=== PATIENT | male | born 1975 | race Caucasian/White ===

== ENCOUNTER 2018-06-09 10:45 | Inpatient (IN) | payer OTHER ==
[2018-06-09] MEDS ORDERED: THROMBIN 5000 UNIT VIAL (12:38)
[2018-06-09] MEDS ORDERED: GELATIN SIZE 100 SPONGE (12:38)
[2018-06-09] MEDS ORDERED: MIDAZOLAM 1 MG/ML 2 ML INJ ×2 (13:09→14:03)
[2018-06-09] MEDS ORDERED: PHENYLephrine (100 MCG/ML) 10ML SYG (13:24)
[2018-06-09] MEDS ORDERED: VANCOMYCIN 1 GM INJ (13:43)
[2018-06-09] MEDS ORDERED: LIDOCAINE 2% (SDV) 5 ML INJ (14:23)
[2018-06-09] MEDS ORDERED: SUCCINYLCHOLINE CHLORIDE 100 MG/5 ML SYG IV (14:23)
[2018-06-09] MEDS ORDERED: ROCURONIUM 50 MG INJ ×2 (14:23→18:21)
[2018-06-09] MEDS ORDERED: PROPOFOL 40 ML (14:23)
[2018-06-09] MEDS: POLYMYXIN/BACITRACIN 1L IRRIG (14:29)
[2018-06-09] MEDS: LIDOCAINE 1%/EPI (1:100,000) (MDV) 20 ML (14:29)
[2018-06-09] MEDS ORDERED: EPHEDrine 25 MG/5 ML SYG ×2 (14:34→19:52)
[2018-06-09] MEDS ORDERED: DEXAMETHASONE 4 MG/ML 5 ML INJ (14:40)
[2018-06-09] MEDS ORDERED: FAMOTIDINE 20 MG INJ (14:40)
[2018-06-09] MEDS ORDERED: ONDANSETRON 4 MG INJ (14:40)
[2018-06-09] MEDS ORDERED: HYDROmorphONE 2 MG/ML SYG (18:22)
[2018-06-09] MEDS ORDERED: FENTAnyl 50 MCG/ML VIAL IV ×3 (19:30)
[2018-06-09] MEDS ORDERED: MEPERIDINE 25 MG INJ IV (19:30)
[2018-06-09] MEDS ORDERED: ONDANSETRON 4 MG INJ IV (19:30)
[2018-06-09] MEDS ORDERED: DIPHENHYDRAMINE 50 MG INJ IV (19:30)
[2018-06-09] MEDS ORDERED: PROCHLORPERAZINE 10 MG INJ IV (19:30)
[2018-06-09] MEDS ORDERED: HYDROmorphONE 1 MG/5 ML IV SYRINGE IV ×3 (19:30)
[2018-06-09] MEDS ORDERED: DIPHENHYDRAMINE 50 MG CAP PO (20:00)
[2018-06-09] MEDS ORDERED: HYDROCODONE/APAP (5/325) TAB PO (20:00)
[2018-06-09] MEDS ORDERED: NACL 0.9% 3 ML SYG IV (20:00)
[2018-06-09] MEDS ORDERED: morphine 1 MG/ML 30 ML (PCA) IV (20:00)
[2018-06-09] MEDS ORDERED: CEPASTAT LOZENGE MT (20:00)
[2018-06-09] MEDS ORDERED: NALOXONE (0.4 MG/ML) INJ IV (20:00)
[2018-06-09] MEDS: morphine 1 MG/ML 30 ML (PCA) IV (21:18)
[2018-06-09] MEDS: ONDANSETRON 4 MG INJ IV (22:26)
[2018-06-09] MEDS: VANCOMYCIN 1 GM (PMX) 250 ML IVPB (22:26)
[2018-06-09] MEDS: SOD CHLORIDE 0.9% 1,000 ML IV (22:51)
[2018-06-09] MEDS: LACTATED RINGER'S 1,000 ML IV (22:51)
[2018-06-10 05:53] LABS: ADD MAN DIFF? NO
[2018-06-10 06:01] LABS: BASOPHILS % 0.2 % (0.0-2.0); HEMATOCRIT 36.9 % (42.0-52.0); HEMOGLOBIN 12.2 g/dl (14.0-18.0); LYMPHOCYTES # 0.9 10^3/ul (0.8-2.9); LYMPHOCYTES % 5.1 % (15.0-51.0); MEAN CORPUSCULAR HEMOGLOBIN 29.8 pg (29.0-33.0); MEAN CORPUSCULAR HGB CONC 33.1 g/dl (32.0-37.0); MEAN CORPUSCULAR VOLUME 90.2 fl (82.0-101.0); MEAN PLATELET VOLUME 10.2 fl (7.4-10.4); MONOCYTES % 6.2 % (0.0-11.0); NEUTROPHIL # 14.8 10^3/ul (1.6-7.5); NEUTROPHILS % 88.1 % (39.0-77.0); PLATELET COUNT 256 10^3/UL (140-415); RED BLOOD COUNT 4.09 10^6/ul (4.70-6.10); RED CELL DISTRIBUTION WIDTH 12.6 % (11.5-14.5)
[2018-06-10 06:01] LABS: WHITE BLOOD COUNT 16.7 10^3/ul (4.8-10.8)
[2018-06-10 06:06] LABS: ANION GAP 8 (5-13); BLOOD UREA NITROGEN 15 mg/dl (7-20); CALCIUM 9.3 mg/dl (8.4-10.2); CARBON DIOXIDE 25 mmol/L (21-31); CHLORIDE 108 mmol/L (97-110); CREATININE 1.12 mg/dl (0.61-1.24); Estimated GFR > 60 mL/min (>60); GLUCOSE 178 mg/dl (70-220); POTASSIUM 4.7 mmol/L (3.5-5.1); SODIUM 141 mmol/L (135-144)
[2018-06-10] MEDS: LACTATED RINGER'S 1,000 ML IV (06:19)
[2018-06-10] MEDS: SOD CHLORIDE 0.9% 1,000 ML IV (06:22)
[2018-06-10] MEDS: ONDANSETRON 4 MG INJ IV ×2 (06:58→16:10)
[2018-06-10] MEDS ORDERED: EPHEDrine 25 MG/5 ML SYG (07:00)
[2018-06-10] MEDS: ACETAMINOPHEN 1000MG/100ML IV 100 ML IVPB ×3 (08:49→21:45)
[2018-06-10] MEDS: DEXTROSE 5%-0.45% NACL 1,000 ML IV ×2 (08:49→22:46)
[2018-06-10] MEDS: ATENOLOL 25 MG TAB PO (09:00)
[2018-06-10] MEDS: GEMFIBROZIL 600 MG TAB PO (09:00)
[2018-06-10] MEDS: DOCUSATE SODIUM 100 MG CAP PO ×2 (09:00→21:45)
[2018-06-10] MEDS: FLUTICASONE 0.05% 16 GM NAS SPRAY NASAL (09:00)
[2018-06-10] MEDS: AMLODIPINE 5 MG TAB PO (09:00)
[2018-06-10] MEDS: BUPROPION (XL) 150 MG TAB PO (09:00)
[2018-06-10] MEDS: VENLAFAXINE 75 MG TABLET PO ×2 (09:00→21:45)
[2018-06-10] MEDS: DEXAMETHASONE 4 MG/ML 1 ML INJ IV ×3 (09:03→22:45)
[2018-06-10] MEDS: METOCLOPRAMIDE 10 MG INJ IV (09:43)
[2018-06-10] MEDS: VANCOMYCIN 1 GM (PMX) 250 ML IVPB (11:01)
[2018-06-10] MEDS ORDERED: METOCLOPRAMIDE 10 MG INJ IV ×2 (12:00→18:00)
[2018-06-10] MEDS ORDERED: SUCCINYLCHOLINE CHLORIDE 100 MG/5 ML SYG IV (17:52)
[2018-06-10] MEDS ORDERED: PROPOFOL 20 ML (17:52)
[2018-06-10] MEDS ORDERED: ROCURONIUM 50 MG INJ ×2 (17:52→17:53)
[2018-06-10] MEDS ORDERED: MIDAZOLAM 1 MG/ML 2 ML INJ (17:53)
[2018-06-10] MEDS ORDERED: FENTAnyl 50 MCG/ML VIAL (17:53)
[2018-06-10] MEDS ORDERED: ONDANSETRON 4 MG INJ (17:54)
[2018-06-10] MEDS ORDERED: METOCLOPRAMIDE 10 MG INJ (17:54)
[2018-06-10] MEDS ORDERED: DEXAMETHASONE 4 MG/ML 5 ML INJ (17:55)
[2018-06-10] MEDS ORDERED: hydrALAzine 20 MG INJ IV (18:00)
[2018-06-10] MEDS ORDERED: DIPHENHYDRAMINE 50 MG INJ IV (18:00)
[2018-06-10] MEDS ORDERED: HYDROmorphONE 1 MG/5 ML IV SYRINGE IV ×2 (18:00)
[2018-06-10] MEDS ORDERED: FENTAnyl 50 MCG/ML VIAL IV ×4 (18:00→20:30)
[2018-06-10] MEDS ORDERED: ONDANSETRON 4 MG INJ IV (18:00)
[2018-06-10] MEDS ORDERED: EPHEDrine SULFATE 50 MG/5 ML SYG IV (18:00)
[2018-06-10] MEDS ORDERED: MEPERIDINE 25 MG INJ IV (18:00)
[2018-06-10] MEDS ORDERED: PHENYLephrine (100 MCG/ML) 10ML SYG (18:27)
[2018-06-10] MEDS: POLYMYXIN/BACITRACIN 1L IRRIG (18:28)
[2018-06-10] MEDS ORDERED: VANCOMYCIN 1 GM (PMX) 250 ML (18:35)
[2018-06-10] MEDS ORDERED: SUGAMMADEX SODIUM 200 MG/2 ML VIAL IV (19:38)
[2018-06-10] MEDS: LABETALOL HCL 20MG INJ IV ×4 (19:57→20:57)
[2018-06-10] MEDS: morphine 1 MG/ML 30 ML (PCA) IV ×2 (20:11→23:25)
[2018-06-10] MEDS: FENTAnyl 50 MCG/ML VIAL IV ×2 (20:16→20:45)
[2018-06-10] MEDS: HYDROmorphONE 1 MG/5 ML IV SYRINGE IV (21:18)
[2018-06-10] MEDS: TOPIRAMATE 100 MG TAB PO (21:45)
[2018-06-10] MEDS: LEVOFLOXACIN 750MG/D5W (PMX) 150 ML IVPB (22:45)
[2018-06-11] MEDS: ACETAMINOPHEN 1000MG/100ML IV 100 ML IVPB (00:36)
[2018-06-11 05:00] LABS: ADD MAN DIFF? NO
[2018-06-11 05:05] LABS: BASOPHILS % 0.1 % (0.0-2.0); HEMOGLOBIN 10.8 g/dl (14.0-18.0); LYMPHOCYTES # 1.5 10^3/ul (0.8-2.9); LYMPHOCYTES % 9.6 % (15.0-51.0); MEAN CORPUSCULAR HEMOGLOBIN 29.7 pg (29.0-33.0); MEAN CORPUSCULAR HGB CONC 32.7 g/dl (32.0-37.0); MEAN CORPUSCULAR VOLUME 90.7 fl (82.0-101.0); MEAN PLATELET VOLUME 9.9 fl (7.4-10.4); MONOCYTE # 1.2 10^3/ul (0.3-0.9); NEUTROPHIL # 12.6 10^3/ul (1.6-7.5); NEUTROPHILS % 81.8 % (39.0-77.0); PLATELET COUNT 270 10^3/UL (140-415); RED BLOOD COUNT 3.64 10^6/ul (4.70-6.10); RED CELL DISTRIBUTION WIDTH 12.7 % (11.5-14.5)
[2018-06-11 05:05] LABS: WHITE BLOOD COUNT 15.3 10^3/ul (4.8-10.8)
[2018-06-11 05:32] LABS: IRON 78 ug/dl (35-150)
[2018-06-11 05:41] LABS: % IRON SATURATION 23 % SAT (22-52); TOTAL IRON BINDING CAPACITY 346 ug/dl (241-421)
[2018-06-11 05:42] LABS: ANION GAP 10 (5-13); BLOOD UREA NITROGEN 14 mg/dl (7-20); CALCIUM 9.7 mg/dl (8.4-10.2); CARBON DIOXIDE 26 mmol/L (21-31); CHLORIDE 109 mmol/L (97-110); CREATININE 1.19 mg/dl (0.61-1.24); Estimated GFR > 60 mL/min (>60); GLUCOSE 144 mg/dl (70-220); POTASSIUM 3.9 mmol/L (3.5-5.1); SODIUM 145 mmol/L (135-144)
[2018-06-11] MEDS: PANTOPRAZOLE 40 MG INJ IV (06:33)
[2018-06-11] MEDS: DEXAMETHASONE 4 MG/ML 1 ML INJ IV ×3 (06:33→22:26)
[2018-06-11] MEDS: GEMFIBROZIL 600 MG TAB PO (09:00)
[2018-06-11] MEDS: DOCUSATE SODIUM 100 MG CAP PO ×2 (09:00→20:47)
[2018-06-11] MEDS: FLUTICASONE 0.05% 16 GM NAS SPRAY NASAL (10:16)
[2018-06-11] MEDS: BUPROPION (XL) 150 MG TAB PO (10:17)
[2018-06-11] MEDS: VENLAFAXINE 75 MG TABLET PO ×2 (10:17→20:47)
[2018-06-11] MEDS: ATENOLOL 25 MG TAB PO (10:17)
[2018-06-11] MEDS: AMLODIPINE 5 MG TAB PO (10:17)
[2018-06-11] MEDS: TOPIRAMATE 100 MG TAB PO (10:27)
[2018-06-11] MEDS: ACETAMINOPHEN 325 MG TAB PO (20:47)
[2018-06-11] MEDS: morphine 1 MG/ML 30 ML (PCA) IV (20:47)
[2018-06-11] MEDS: LEVOFLOXACIN 750MG/D5W (PMX) 150 ML IVPB (22:26)
[2018-06-11] MEDS: DIAZEPAM 5 MG TAB PO (22:26)
[2018-06-11] MEDS: ZOLPIDEM 5 MG TAB PO (22:37)
[2018-06-12] MEDS: DEXAMETHASONE 4 MG/ML 1 ML INJ IV (05:39)
[2018-06-12] MEDS: PANTOPRAZOLE 40 MG INJ IV (05:39)
[2018-06-12] MEDS: DIAZEPAM 5 MG TAB PO ×3 (05:39→21:10)
[2018-06-12 06:06] LABS: ADD MAN DIFF? NO
[2018-06-12 06:20] LABS: BASOPHILS % 0.2 % (0.0-2.0); HEMATOCRIT 33.3 % (42.0-52.0); LYMPHOCYTES # 1.6 10^3/ul (0.8-2.9); LYMPHOCYTES % 12.5 % (15.0-51.0); MEAN CORPUSCULAR HEMOGLOBIN 29.9 pg (29.0-33.0); MEAN CORPUSCULAR VOLUME 90.5 fl (82.0-101.0); MEAN PLATELET VOLUME 10.2 fl (7.4-10.4); MONOCYTE # 0.8 10^3/ul (0.3-0.9); MONOCYTES % 5.9 % (0.0-11.0); NEUTROPHIL # 10.4 10^3/ul (1.6-7.5); NEUTROPHILS % 81.2 % (39.0-77.0); PLATELET COUNT 267 10^3/UL (140-415); RED BLOOD COUNT 3.68 10^6/ul (4.70-6.10); RED CELL DISTRIBUTION WIDTH 12.7 % (11.5-14.5)
[2018-06-12 06:20] LABS: WHITE BLOOD COUNT 12.8 10^3/ul (4.8-10.8)
[2018-06-12 06:54] LABS: ANION GAP 8 (5-13); BLOOD UREA NITROGEN 13 mg/dl (7-20); CARBON DIOXIDE 27 mmol/L (21-31); CHLORIDE 109 mmol/L (97-110); CREATININE 1.01 mg/dl (0.61-1.24); Estimated GFR > 60 mL/min (>60); GLUCOSE 120 mg/dl (70-220); POTASSIUM 4.2 mmol/L (3.5-5.1); SODIUM 144 mmol/L (135-144)
[2018-06-12] MEDS: DOCUSATE SODIUM 100 MG CAP PO ×2 (09:46→21:10)
[2018-06-12] MEDS: ATENOLOL 25 MG TAB PO (09:48)
[2018-06-12] MEDS: AMLODIPINE 5 MG TAB PO (09:48)
[2018-06-12] MEDS: VENLAFAXINE 75 MG TABLET PO ×2 (09:49→21:10)
[2018-06-12] MEDS: GEMFIBROZIL 600 MG TAB PO (09:53)
[2018-06-12] MEDS ORDERED: LUBIPROSTONE 8 MCG CAPSULE PO (10:00)
[2018-06-12] MEDS: FLUTICASONE 0.05% 16 GM NAS SPRAY NASAL (10:00)
[2018-06-12] MEDS: HYDROCODONE/APAP (5/325) TAB PO ×4 (10:31→22:42)
[2018-06-12] MEDS: BUPROPION (XL) 150 MG TAB PO (12:07)
[2018-06-12] MEDS: ACETAMINOPHEN 325 MG TAB PO ×2 (12:07→17:12)
[2018-06-12] MEDS: TOPIRAMATE 100 MG TAB PO (21:10)
[2018-06-12] MEDS: DEXAMETHASONE 1 MG TAB PO (21:10)
[2018-06-12] MEDS: LEVOFLOXACIN 750MG/D5W (PMX) 150 ML IVPB (21:11)
[2018-06-13] MEDS: ZOLPIDEM 5 MG TAB PO (01:12)
[2018-06-13] MEDS: DIAZEPAM 5 MG TAB PO (01:12)
[2018-06-13] MEDS: HYDROCODONE/APAP (5/325) TAB PO ×2 (02:47→06:47)
[2018-06-13 05:55] LABS: ADD MAN DIFF? NO
[2018-06-13 05:59] LABS: BASOPHILS % 0.4 % (0.0-2.0); EOSINOPHILS # 0.1 10^3/ul (0.0-0.5); EOSINOPHILS % 0.9 % (0.0-7.0); HEMATOCRIT 33.3 % (42.0-52.0); HEMOGLOBIN 11.1 g/dl (14.0-18.0); LYMPHOCYTES # 2.4 10^3/ul (0.8-2.9); LYMPHOCYTES % 26.2 % (15.0-51.0); MEAN CORPUSCULAR HEMOGLOBIN 29.8 pg (29.0-33.0); MEAN CORPUSCULAR HGB CONC 33.3 g/dl (32.0-37.0); MEAN CORPUSCULAR VOLUME 89.5 fl (82.0-101.0); MEAN PLATELET VOLUME 9.9 fl (7.4-10.4); MONOCYTE # 0.6 10^3/ul (0.3-0.9); MONOCYTES % 6.7 % (0.0-11.0); NEUTROPHIL # 5.9 10^3/ul (1.6-7.5); NEUTROPHILS % 65.4 % (39.0-77.0); PLATELET COUNT 278 10^3/UL (140-415); RED BLOOD COUNT 3.72 10^6/ul (4.70-6.10); RED CELL DISTRIBUTION WIDTH 12.5 % (11.5-14.5)
[2018-06-13 06:32] LABS: ANION GAP 9 (5-13); BLOOD UREA NITROGEN 14 mg/dl (7-20); CALCIUM 10.2 mg/dl (8.4-10.2); CARBON DIOXIDE 25 mmol/L (21-31); CHLORIDE 109 mmol/L (97-110); CREATININE 1.07 mg/dl (0.61-1.24); Estimated GFR > 60 mL/min (>60); GLUCOSE 109 mg/dl (70-220); POTASSIUM 3.8 mmol/L (3.5-5.1); SODIUM 143 mmol/L (135-144)
[2018-06-13] MEDS: PANTOPRAZOLE (EC) 40 MG TAB PO (06:47)
[2018-06-13] MEDS: GEMFIBROZIL 600 MG TAB PO (08:46)
[2018-06-13] MEDS: DOCUSATE SODIUM 100 MG CAP PO (08:46)
[2018-06-13] MEDS: BUPROPION (XL) 150 MG TAB PO (08:47)
[2018-06-13] MEDS: ATENOLOL 25 MG TAB PO (08:48)
[2018-06-13] MEDS: AMLODIPINE 5 MG TAB PO (08:49)
[2018-06-13] MEDS: VENLAFAXINE 75 MG TABLET PO (08:49)
[2018-06-13] MEDS: DEXAMETHASONE 1 MG TAB PO (08:49)
[2018-06-13] MEDS: FLUTICASONE 0.05% 16 GM NAS SPRAY NASAL (10:01)
[2018-06-19] MEDS ORDERED: EPHEDrine 25 MG/5 ML SYG (07:00)
[2018-06-19] MEDS ORDERED: SEVOFLURANE 15 MIN (07:00)
== END 2018-06-13 12:30 | disposition home health service (06) | DRG 472 ==
LOC: REC 10:45 → MS1 21:27
PROC: 0RG20A0 Fusion of 2 or more Cervical Vertebral Joints with Interbody Fusion Device, Anterior Approach, Anterior Column, Open Approach (ICD-10-PCS; principal; 2018-06-09 12:00)
PROC: 0RB30ZZ Excision of Cervical Vertebral Disc, Open Approach (ICD-10-PCS; 2018-06-09 12:00)
PROC: 0RP104Z Removal of Internal Fixation Device from Cervical Vertebral Joint, Open Approach (ICD-10-PCS; 2018-06-09 12:00)
PROC: 4A11X4G Monitoring of Peripheral Nervous Electrical Activity, Intraoperative, External Approach (ICD-10-PCS; 2018-06-09 12:00)
PROC: 0JC40ZZ Extirpation of Matter from Right Neck Subcutaneous Tissue and Fascia, Open Approach (ICD-10-PCS; 2018-06-09 13:09)
DX: M48.02 Spinal stenosis, cervical region (principal); M50.01 Cervical disc disorder with myelopathy, high cervical region; M47.12 Other spondylosis with myelopathy, cervical region; L76.32 Postprocedural hematoma of skin and subcutaneous tissue following other procedure; M47.22 Other spondylosis with radiculopathy, cervical region; M50.11 Cervical disc disorder with radiculopathy, high cervical region; M53.2X2 Spinal instabilities, cervical region; D64.9 Anemia, unspecified; E78.5 Hyperlipidemia, unspecified; E66.3 Overweight; F41.9 Anxiety disorder, unspecified; F32.9 Major depressive disorder, single episode, unspecified; G44.029 Chronic cluster headache, not intractable; G89.18 Other acute postprocedural pain; I10 Essential (primary) hypertension; K59.00 Constipation, unspecified; R13.10 Dysphagia, unspecified; Y83.8 Other surgical procedures as the cause of abnormal reaction of the patient, or of later complication, without mention of misadventure at the time of the procedure; Z68.27 Body mass index [BMI] 27.0-27.9, adult; Z98.1 Arthrodesis status
CPT/HCPCS: 72040; 80048; 83540; 85025; 86850; 86900; 86901; 88300; 92526; 92610; 97116; 97161; 97530